=== PATIENT | female | born 1945 | race Caucasian/White ===

== ENCOUNTER → 2017-11-05 13:58 | Outpatient (CLI) | payer SELFPAY ==
[2017-11-05 16:07] LABS: Anion Gap 10 (5-15); BUN 11 mg/dL (7-18); BUN/Creat Ratio 14.8 RATIO (10-20); Calcium,Total 8.9 mg/dL (8.5-10.1); Chloride 97 mmol/L (98-107); Creatinine, Serum 0.74 mg/dL (0.55-1.02); EST Glomerular Filtration Rate 82 mL/min (>60); Est Glom Filt Rate - Afr Amer 99 mL/min (>60); Glucose 93 mg/dL (74-106); Potassium 3.2 mmol/L (3.5-5.1); Sodium Level 137 mmol/L (136-145); T4 Free Direct 1.38 ng/dL (0.76-1.46); Thyroid Stim Hormone (TSH) 1.97 uIU/mL (0.358-3.74)
== END ==
PROVIDERS: Visit Provider Family Medicine
DX: E87.6 Hypokalemia (principal); E03.9 Hypothyroidism, unspecified
CPT/HCPCS: 36415; 80048; 84439; 84443

== ENCOUNTER → 2018-03-19 14:26 | Outpatient (CLI) | payer SELFPAY ==
[2018-03-19 16:31] LABS: Anion Gap 8 (5-15); BUN 17 mg/dL (7-18); BUN/Creat Ratio 18.3 RATIO (10-20); Calcium,Total 9.1 mg/dL (8.5-10.1); Chloride 106 mmol/L (98-107); Creatinine, Serum 0.93 mg/dL (0.55-1.02); EST Glomerular Filtration Rate 63 mL/min (>60); Est Glom Filt Rate - Afr Amer 77 mL/min (>60); Glucose 90 mg/dL (74-106); Sodium Level 143 mmol/L (136-145)
== END ==
PROVIDERS: Family Provider Family Medicine; Visit Provider Family Medicine
DX: I10 Essential (primary) hypertension (principal); E03.9 Hypothyroidism, unspecified; E87.6 Hypokalemia
CPT/HCPCS: 36415; 80048; 84439; 84443

== ENCOUNTER → 2018-05-20 15:02 | Outpatient (CLI) | payer SELFPAY ==
[2018-05-20 17:57] LABS: Free T3 2.8 pg/mL (2.18-3.98); T4 Free Direct 0.92 ng/dL (0.76-1.46); Thyroid Stim Hormone (TSH) 9.71 uIU/mL (0.358-3.74)
== END ==
PROVIDERS: Family Provider Family Medicine; PCP Family Medicine; Visit Provider Family Medicine
DX: E03.9 Hypothyroidism, unspecified (principal); R10.9 Unspecified abdominal pain; I10 Essential (primary) hypertension
CPT/HCPCS: 84439; 84443; 84481

== ENCOUNTER → 2018-07-30 13:08 | Outpatient (CLI) | payer SELFPAY | PROVIDERS: Family Provider Family Medicine; PCP Family Medicine; Visit Provider Family Medicine | DX: R07.9 Chest pain, unspecified (principal); I10 Essential (primary) hypertension | CPT/HCPCS: 36415; 84484 ==

== ENCOUNTER → 2018-08-16 12:13 | Outpatient (CLI) | payer SELFPAY ==
--- NOTE | 2018-08-16 12:20 | STE_ITS ---
Reason For Study: CHEST PAIN Stress Results Protocol: Ahsan Protocol Maximum Predicted HR: 149 bpm Target HR: 127 bpm % Maximum Predicted HR: 103 % DurationHeart Rate Stage (mm:ss) (bpm) BP BASELINE 83 160/90 STAGE 1 3:00 127 200/78 STAGE 2 3:00 146 212/86 STAGE 3 1:00 153 / RECOVERY 99 164/82 Stress Duration: 7:00 mm:ss Maximum Stress HR: 153 bpm Baseline Echocardiogram Findings The estimated ejection fraction is 65 %. Stress Echo Wall motion Data Resting WM Intermediate WM Stress WM Resting Wall Motion Wall Motion Stress No regional wall motion No regional wall motion abnormalities noted. abnormalities noted. EKG Data Normal intervals are noted. The patient exercised according to the regular Ahsan protocol for a total duration of 7:00. The maximum heart rate attained was 160 beats per minute. This was 107% of maximum predicted heart rate. The patient exercised into stage 3 of the Ahsan protocol. During stress, there were no ST or T wave changes noted to suggest ischemia. Interpretation Summary The estimated ejection fraction is 65 %. Normal, adequate, treadmill echocardiogram. Negative for ischemia by EKG and echocardiographic criteria. No anginal symptoms noted. No arrhythmias noted. Hypertensive blood pressure response to exercise. Average exercise capacity for age. Final LVEF is 75%. Test terminated due to dyspnea. No complications. Ordering Physician: Carlos Johnson Referring Physician: Carlos Johnson Performed By: Toni Albright RCS
== END ==
PROVIDERS: Family Provider Family Medicine; PCP Family Medicine; Referring Provider Family Medicine; Visit Provider Family Medicine
DX: R07.9 Chest pain, unspecified (principal)
CPT/HCPCS: 93017; 93350

== ENCOUNTER 2019-10-12 10:46 | Emergency (ER) | payer MEDICARE, MEDICAID, SELFPAY ==
[2019-10-12] VITALS (8 sets, daily range): BP systolic 131–172; BP diastolic 58–92; PULSE 75–93; RESP 16–20; TEMP 36.5; O2SAT 95–100; BMI 22.1
--- NOTE | 2019-10-12 10:54 | EKG12_ITS ---
Test Reason : STROKE Blood Pressure : / mmHG Vent. Rate : 082 BPM Atrial Rate : 082 BPM P-R Int : 168 ms QRS Dur : 082 ms QT Int : 410 ms P-R-T Axes : 045 -21 015 degrees QTc Int : 479 ms Sinus rhythm with frequent Premature ventricular complexes Inferior infarct , age undetermined Abnormal ECG Confirmed by DORIAN NUNEZ, WALE ([id number]), editor at large DAMASO PATRICK ([id number]) on 10/14/2019 10:02:35 AM Referred By: CHAIM Confirmed By:WALE ALARCON MD
--- NOTE | 2019-10-12 10:54 | CT_ITS ---
STUDY: CT BRAIN WITHOUT CONTRAST REASON FOR EXAM: Female, 73 years old with right-sided weakness. RADIATION DOSAGE (If Supplied By Facility): CTDIvol = ( 44.99 ) mGy, DLP = ( 779.24 ) mGycm TECHNIQUE: Transaxial CT imaging of the brain was performed without administration of intravenous contrast material. Multiplanar reformations are submitted for interpretation. Individualized dose optimization techniques were used for this CT. COMPARISON: No relevant priors. FINDINGS: CT of the head dated March 20, 2016. Normal calvarium. Normal size ventricles and extra-axial spaces for the patient''s age. Normal white matter tracts of the cerebral hemispheres. Normal basal ganglia and thalami. Normal brainstem. Normal cerebellum. There is no intracranial hemorrhage. There is minimal atherosclerotic calcification of the intracranial arteries. Incidental note is made of a calcification of the left ocular lens as well as several calcifications within the globe. Normal visualized paranasal sinuses. CT/Brain/Head without Contrast IMPRESSION: No CT evidence of acute intracranial hemorrhage. N.B. : The above information has been verbally conveyed by Tara Mandel MD to La Shukla MD, on 10/12/2019 11:19:59 (ET). Electronically Signed: Tara Mandel MD at 11:22 EST , Service support ,
--- NOTE | 2019-10-12 10:55 | CT_ITS ---
We are attempting to reach an attending provider to discuss findings. An addendum with communication details will be sent when the communication is complete. STUDY: CTA HEAD AND NECK WITH CONTRAST REASON FOR EXAM: Female, 73 years old. CVA, RT SIDED WEAKNES RADIATION DOSAGE (If Supplied By Facility): CTDIvol = ( 18.36 ) mGy, DLP = ( 536.78 ) mGycm TECHNIQUE: CT angiography was performed with a multi-detector CT scanner. Data acquisition was obtained from the skull base through the vertex following intravenous administration of 100ML ISOVUE 370. MIP images were reconstructed from the axial data set. Post-processing of the angiographic images was performed, with multiplanar reformation and 3D reconstruction. Individualized dose optimization techniques were used for this CT. COMPARISON: No relevant priors. FINDINGS: Normal bilateral petrous carotid arteries. Normal right cavernous carotid artery with a normal supraclinoid bifurcation. Normal left cavernous carotid artery with a normal supraclinoid bifurcation. Normal right A1 segments of the anterior cerebral artery. Normal left A1 segments of the anterior cerebral artery. Nonvisualization of the anterior communicating artery (ACOM). Normal bilateral A2 segments of the anterior cerebral arteries. Normal right M1 and M2 segments of the middle cerebral arteries, with a normal M1 bifurcation. Normal left M1 and M2 segments of the middle cerebral arteries, with a normal M1 bifurcation. Normal right posterior communicating artery (PCOM). Normal left posterior communicating artery (PCOM). Normal bilateral vertebral arteries. Normal basilar artery with a normal basilar bifurcation. The visualized bilateral superior cerebellar (SCA) arteries are normal. Normal left posterior cerebral artery. Segmental narrowing or hypoplasia of the proximal segment of the right posterior cerebral artery. There is no demonstrated aneurysm of the [place] of [place]. There is no demonstrated abnormality of the visualized brain. AORTIC ARCH: Normal bovine aortic arch with mild atherosclerotic calcifications. Normal origins of the brachiocephalic, left common carotid, and left subclavian arteries. There is moderate intraluminal thrombus at the proximal segment of the left subclavian artery RIGHT CAROTID ARTERIES: Normal right common carotid artery (CCA). Normal right common carotid bulb. Normal origin of the right internal carotid (ICA) artery without a hemodynamically significant stenosis. Normal visualized cervical portion of the right internal carotid artery. Normal origin of the right external carotid artery (ECA). LEFT CAROTID ARTERIES: Normal left common carotid artery (CCA). Normal left common carotid bulb. Normal origin of the left internal carotid (ICA) artery without a hemodynamically significant stenosis. Normal visualized cervical portion of the left internal carotid artery. Normal origin of the left external carotid artery (ECA). VERTEBRAL ARTERIES: Normal right vertebral artery. 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 CT/CTA Head AND Neck W/ Contrast IMPRESSION: Segmental narrowing or hypoplasia or proximal second order right posterior cerebral artery. 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 Intraluminal thrombus with moderate narrowing of the proximal segment of the left subclavian artery. Electronically Signed: Wellington Doan DO at 11:50 EST Tel [phone], Service support ,
--- NOTE | 2019-10-12 10:59 | ED.DCSUM_ITS ---
- ER Visit Summary Date of Service: 10/12/19 Chief Complaint: [Right-sided weakness and paresthesias] History of Present Illness: The patient is a 73 F [presents to the emergency department with symptoms that started at 5 AM this morning. Patient states that she got a wave of numbness to the right side of her face and arm and leg. Paresthesias are mostly resolved currently but states that she thinks her right side is weak compared to the left. Patient was still able to ambulate. She denies any difficulty with speech. 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 She denies any chest pain or shortness of breath. She denies recent illness. Patient does have history of hypertension. She is not on any blood thinners.] Physical Examination: [HEENT-PERRLA, EOMI. Cranial nerves II through XII grossly intact. TMs clear. Mucous membranes moist. No adenopathy. Patient does appear to have a film over the left cornea. Cardiovascular-regular rate and rhythm without murmur or ectopy Lungs-clear to auscultation, chest wall stable without crepitus or subcu emphysema Abdomen-normoactive bowel sounds, soft, nontender, no rebound or rigidity, no peritoneal signs. Neuro rpjc-[id number] and heel meraz testing within normal limits, negative Romberg, negative for drift. NIH stroke scale was a 1 for some mild paresthesias or difference in sensation to the right lower extremity compared to the left however no obvious focal weakness noted. Extremities-intact ?4, normal range of motion, normal pulses, atraumatic] Test Results: [CT scan of the brain without contrast showed nothing acute. CBC with differential was unremarkable. Chemistries unremarkable. Troponin is less than 0.15. Chest x-ray showed nothing acute. CTA of the head and neck obtained was read by radiologist segmental narrowing or hypoplasia of proximal second order right posterior cerebral artery. Diffuse hypoplasia left vertebral artery. Intraluminal thrombus with moderate narrowing of the proximal segment of the left subclavian artery.] Emergency Department Course and Treatment: [Case was discussed with the patient. I discussed case with [facility] neurologist . It was recommended that patient be admitted for further work-up however patient does not want to go down to [facility] and would prefer to go to a [facility] facility. I discussed case with [facility] and they recommended admission to [facility].] Patient is not a thrombolytic candidate as she has minimal and improving symptoms. Patient also has had symptoms for greater than 5 hours on arrival to the emergency department. Treatment Plan: [Transfer] Disposition: [Transfer] Impression: [CVA Left subclavian artery thrombus] This note was generated with [employer] dictation software. It may contain incorrect words, spelling, and punctuation that were not noted in review of the chart prior to signing ED Disposition - Plan for ED Patient: Referrals: Carlos Johnson DO [Primary Care Provider] -
[2019-10-12 11:01] LABS: Bedside Glucose 91 mg/dL (70-110)
[2019-10-12 11:03] LABS: Absolute Lymphocyte Count 2.51 X10^3/uL (0.83-4.51); Absolute Neutrophil Count 6.3 X10^3/uL (2.0-7.7); Basophil# 0.06 X10^3/uL; Basophil% 0.6 % (0-1); Eosinophil# 0.15 X10^3/uL; Eosinophils% 1.5 % (0-5); Hematocrit 44.7 % (37-47); Hemoglobin 14.6 g/dL (12.0-15.0); Lymphocyte # 2.51 X10^3/ul (4.0); Lymphocyte % 25.6 % (19-41); Mean Corp Hgb Conc 32.7 g/dL (32-36); Mean Corpuscular Hgb 29.3 pg (27.0-32.0); Mean Corpuscular Volume 89.6 fL (81-99); Mean Platelet Vol. 9.7 fl (6.2-12.0); Monocyte# 0.77 X10^3/uL; Monocyte% 7.8 % (0-10); NRBC Flagged by Analyzer 0 % (0-5); Neutrophil % 64.2 % (47-70); Platelet Count 323 K/mm3 (150-450); RBC Distribution Width CV 12.9 % (11.6-14.6); RBC Distribution Width SD 42.4 fl (35.1-43.9); Red Blood Count 4.99 M/mm3 (4.2-5.4); White Blood Count 9.8 K/mm3 (4.4-11.0)
[2019-10-12 11:18] LABS: Anion Gap 4 (5-15); BUN 10 mg/dL (7-18); BUN/Creat Ratio 11.2 RATIO (10-20); Calcium,Total 9.8 mg/dL (8.5-10.1); Chloride 109 mmol/L (98-107); EST Glomerular Filtration Rate 66 mL/min (>60); Est Glom Filt Rate - Afr Amer 79 mL/min (>60); Estimated Creatinine Clearance 52.89 ml/min; Glucose 89 mg/dL (74-106); International Normalized Ratio 0.9; Partial Thromboplast Time 32.9 Seconds (24.1-36.2); Potassium 3.7 mmol/L (3.5-5.1); Prothrombin Time (Protime)PT. 12.2 SECONDS (11.7-14.9); Sodium Level 143 mmol/L (136-145)
--- NOTE | 2019-10-12 11:20 | RAD_ITS ---
STUDY: X-RAY CHEST REASON FOR EXAM: Female, 73 years old stroke protocol. TECHNIQUE: Single AP portable view of the chest. COMPARISON: January 02, 2010. FINDINGS: Cardiac monitoring leads are present. The lungs are clear and expanded. There is no demonstrated pleural abnormality. Normal size heart. Normal mediastinum and aby. Normal visualized pulmonary arteries. There is atherosclerotic calcification of the aortic arch with tortuosity. There is demineralization of the osseous structures. Normal visualized ribs, clavicles, and shoulders. There is no demonstrated abnormality of the visualized soft tissue structures of the upper abdomen. RAD/Chest 1 View IMPRESSION: No radiographic evidence of acute cardiopulmonary disease. Electronically Signed: Tara Mandel MD at 11:41 EST , Service support ,
[2019-10-12] MEDS: 0.9% Normal Saline 1,000 ML 100 ML IV (12:45)
== END 2019-10-12 14:15 | disposition home or self-care (01) ==
LOC: ED 11:02
PROVIDERS: Emergency Provider Emergency Medicine; Family Provider Family Medicine; PCP Family Medicine
DX: I63.9 Cerebral infarction, unspecified (principal); R29.701 NIHSS score 1; I82.B12 Acute embolism and thrombosis of left subclavian vein; I49.3 Ventricular premature depolarization; I69.398 Other sequelae of cerebral infarction; H54.40 Blindness, one eye, unspecified eye; I10 Essential (primary) hypertension; Z79.899 Other long term (current) drug therapy
CPT/HCPCS: 70450; 70496; 70498; 71045; 80048; 82962; 84484; 85025; 85610; 85730; 93005; 96360; 99284; J7030; Q9967; A4216

== ENCOUNTER → 2025-01-02 | Outpatient (CLI) | payer SELFPAY ==
--- NOTE | 2025-01-02 13:55 | RAD_ITS ---
PROCEDURE: CHEST PA AND LATERAL 01/02/2025 REASON FOR EXAM: ASSESS XYPHOID PROCESS TECHNIQUE: Frontal and lateral views of the chest. COMPARISON: None. FINDINGS: Hardware: None. Heart: Normal size. Mediastinum: Normal contour. Lungs: Clear. No pleural effusion. Bones: Unremarkable. Xiphoid process is not seen well but is grossly unremarkable as seen. Consider radiograph evaluation of the sternum which highlights the sternum RAD/Chest PA and Lateral IMPRESSION: No acute process. Normal xiphoid, but not seen well. Consider radiographs of the sternum. Reading Location: [facility]
[2025-01-02 15:35] LABS: Absolute Lymphocyte Count 1.75 X10^3/uL (0.83-4.51); Absolute Neutrophil Count 6.2 X10^3/uL (2.0-7.7); Basophil% 1.1 % (0-1); Eosinophil# 0.29 X10^3/uL; Eosinophils% 3.3 % (0-5); Hematocrit 44.4 % (37-47); Hemoglobin 14.3 g/dL (12.0-15.0); Lymphocyte # 1.75 X10^3/ul (0.83-4.51); Lymphocyte % 19.7 % (19-41); Mean Corp Hgb Conc 32.2 g/dL (32-36); Mean Corpuscular Hgb 29.4 pg (27.0-32.0); Mean Corpuscular Volume 91.4 fL (81-99); Mean Platelet Vol. 10.3 fl (6.2-12.0); Monocyte# 0.54 X10^3/uL; Monocyte% 6.1 % (0-10); NRBC Flagged by Analyzer 0 % (0-5); Neutrophil % 69.6 % (47-70); Platelet Count 413 K/mm3 (150-450); RBC Distribution Width CV 13.8 % (11.6-14.6); RBC Distribution Width SD 46.8 fl (35.1-43.9); Red Blood Count 4.86 M/mm3 (4.2-5.4); White Blood Count 8.9 K/mm3 (4.4-11.0)
[2025-01-02 16:19] LABS: ALB/GLOB Ratio 1.5 RATIO (0.9-2.4); AST(SGOT) 23 U/L (<=31); Alanine Aminotransfer ALT/SGPT 9 U/L (<=34); Albumin, Serum 4.2 g/dL (3.4-4.8); Alkaline Phosphatase 94 U/L (35-104); Anion Gap 14 (5-15); BUN 11 mg/dL (4-19); BUN/Creat Ratio 13.1 RATIO (10-20); Calcium,Total 9.7 mg/dL (7.6-11.0); Carbon Dioxide 23.3 mmol/L (21.0-32.0); Chloride 104 mmol/L (98-108); Cholesterol 210 mg/dL (<=200); Creatinine, Serum 0.83 mg/dL (0.70-1.20); EST Glomerular Filtration Rate 73 (>60); Globulin 2.9 g/dL (2.2-4.2); Glucose 100 mg/dL (70-99); High Density Lipoprotein 74 mg/dL; Low Density Lipoprotein Calc. 107 mg/dL; Potassium 3.8 mmol/L (3.3-5.1); Protein, Total 7.1 g/dL (5.9-8.4); Sodium Level 142 mmol/L (133-145); Total Bilirubin 0.79 mg/dL (0.00-1.30); Triglycerides 147 mg/dL; Very Low Density Lipoprotein 29 mg/dL (5-40); cholesterol:hdl ratio screen 2.83
== END | disposition home or self-care (01) ==
PROVIDERS: PCP Family Medicine; Referring Provider Nurse Practitioner Family; Visit Provider Nurse Practitioner Family
DX: R07.89 Other chest pain (principal); N39.0 Urinary tract infection, site not specified
CPT/HCPCS: 36415; 71046; 80053; 80061; 85025; 87086

== ENCOUNTER → 2025-06-11 | Outpatient (CLI) | payer SELFPAY ==
--- NOTE | 2025-06-11 11:42 | RAD_ITS ---
PROCEDURE: ANKLE MIN 3 VIEWS 06/11/2025 REASON FOR EXAM: R/O FX TECHNIQUE: Procedure Code: RADANK Modality: DX Procedure: ANKLE MIN 3 VIEWS Laterality: Right COMPARISON: None FINDINGS: Small spur noted in the calcaneus at the plantar aponeurosis. No fracture. No dislocation. No destructive process. Slight narrowing of the ankle mortise and diffuse joint space narrowing. No acute fracture dislocation seen. No soft tissue abnormality. RAD/Ankle min 3 Views IMPRESSION: No acute fracture dislocation of the right ankle. Small calcaneal spur. Reading Location: [id number]
--- NOTE | 2025-06-11 11:42 | RAD_ITS ---
PROCEDURE: FOOT MIN 3 VIEWS 06/11/2025 REASON FOR EXAM: R/ O FX TECHNIQUE: Procedure Code: RADFO Modality: DX Procedure: FOOT MIN 3 VIEWS Laterality: Right COMPARISON: None RAD/Foot min 3 Views IMPRESSION: Mild inferior calcaneal spur noted. No ankle joint effusion is seen on the lateral view. Normal contour of the Achilles tendon is noted. Qaqz-nr-cpnikgla degenerative changes are seen of the right 1st metatarsophalan geal joint, with partial joint narrowing, but without hallux valgus formation. Minimal degenerative changes are seen elsewhe re in the toes. No acute fracture or dislocation is identified. If clinical concern persists, short-term follow-up imaging may be obtained to r ule out a currently occult fracture. Reading Location: [place] [id number]
--- NOTE | 2025-06-11 11:45 | RAD_ITS ---
PROCEDURE: TOE(S) MIN 2 VIEWS 06/11/2025 REASON FOR EXAM: R/O FX TECHNIQUE: Procedure Code: RADTO Modality: DX Procedure: Three-view left toes Laterality: Left COMPARISON: None. RAD/Toe(s) Min 2 Views IMPRESSION: Mild degenerative changes are seen of the left 1st metatarsophalangeal joint, w ith minimal to mild degenerative changes elsewhere throughout the toes. A small osteophyte is seen of the lateral neck of the left 5th metatarsal bone. No acute fracture or dislocation is seen. If clinical concern persists, short-term follow-up imaging may be obtained to r ule out a currently occult fracture. Reading Location: [place] [id number]
== END | disposition home or self-care (01) ==
LOC: RAD 11:39
PROVIDERS: PCP Family Medicine; Referring Provider Nurse Practitioner Family; Visit Provider Nurse Practitioner Family
DX: M79.671 Pain in right foot (principal); M79.675 Pain in left toe(s); M25.471 Effusion, right ankle
CPT/HCPCS: 73610; 73630; 73660